=== PATIENT | female | born 1980 | race Caucasian/White ===

== ENCOUNTER 2019-10-03 19:07 | Emergency (ER) | payer BC ==
[2019-10-03] MEDS ORDERED: Take Home: Sulfamethoxazole/Trimethoprim 800-160 MG Tab, 2 Tab Pack PO ONE (19:49)
--- NOTE | 2019-10-03 22:41 | EDM.PDOC ---
ED HPI GENERAL MEDICAL PROBLEM - General Chief Complaint: Genitourinary Problem Stated Complaint: POSSIBLE UTI Time Seen by Provider: 10/03/19 19:25 Source of Information: Reports: Patient History Limitations: Reports: No Limitations - History of Present Illness INITIAL COMMENTS - FREE TEXT/NARRATIVE: Pt. presents to ER with complaints of dysuria, frequency, urgency, and low back pain that started yesterday. Pt. denies any CVA tenderness. No fever or chills. No nausea, vomiting, or diarrhea. Denies any chest pain or shortness of breath. Denies any history of previous frequent UTIs. Denies any abdominal discomfort. No chest pain or shortness of breath. Onset Date: 10/02/19 Quality: Reports: Burning (urination) Severity: Moderate Associated Symptoms: Denies: Confusion, Chest Pain, Cough, cough w sputum, Fever /Chills, Malaise, Nausea/Vomiting, Rash, Shortness of Breath, Syncope Perineal Area Pain Score (Numeric/FACES): 5 - Related Data Allergies Allergy/AdvReac Type Severity Reaction Status Date / Time No Known Allergies Allergy Verified 10/03/19 19:15 Home Meds: Home Meds hydroCHLOROthiazide [Hydrochlorothiazide] 0.5 tab PO DAILY 10/03/19 [History] medroxyPROGESTERone [Depo-Subq Provera 104] 104 mg SQ ASDIRECTED 10/03/19 [ History] Past Medical History - Past Health History Medical/Surgical History: Denies Medical/Surgical History Cardiovascular History: Reports: Hypertension Social & Family History - Tobacco Use Smoking Status *Q: Never Smoker ED ROS GENERAL - Review of Systems Review Of Systems: Comprehensive ROS is negative, except as noted in HPI. ED EXAM, GENERAL - Physical Exam Exam: See Below Exam Limited By: No Limitations General Appearance: Alert, WD/WN, No Apparent Distress Respiratory/Chest: No Respiratory Distress, Lungs Clear, Normal Breath Sounds, No Accessory Muscle Use, Chest Non-Tender Cardiovascular: Normal Peripheral Pulses, Regular Rate, Rhythm, No Edema, No Gallop, No JVD, No Murmur, No Rub GI/Abdominal: Soft, Non-Tender, No Mass (Female) Exam: Deferred Rectal (Female) Exam: Deferred Back Exam: Normal Inspection, Full Range of Motion. No: CVA Tenderness (L), CVA Tenderness (R) Course - Vital Signs Last Recorded V/S: Last Vital Signs Temp 36.9 C 10/03/19 19:16 Pulse 109 H 10/03/19 19:16 Resp 18 10/03/19 19:16 BP 152/95 H 10/03/19 19:16 Pulse Ox 99 10/03/19 19:16 - Orders/Labs/Meds Orders: Active Orders 24 hr Category Date Time Status CULTURE URINE [RM] Stat Lab 10/03/19 19:27 Received Labs: Laboratory Tests 10/03/19 Range/Units 19:27 Urine Color Yellow (YELLOW) Urine Appearance Cloudy H (CLEAR) Urine pH 6.5 (5.0-8.0) Ur Specific [place] >=1.030 Urine Protein >=300 H (NEGATIVE) mg/dL Urine Glucose (UA) Negative (NEGATIVE) mg/dL Urine Ketones Negative (NEGATIVE) mg/dL Urine Occult Blood Moderate H (NEGATIVE) Urine Nitrite Negative (NEGATIVE) Urine Bilirubin Negative (NEGATIVE) Urine Urobilinogen 0.2 (0.2) EU/dL Ur Leukocyte Esterase Small H (NEGATIVE) Urine RBC 5-10 H (NOT SEEN) /HPF Urine WBC 20-30 H (NOT SEEN) /HPF Ur Squamous Epith Cells Rare (NEGATIVE) /HPF Urine Bacteria Few H (NEGATIVE) /HPF Urine Mucus Not seen (NEGATIVE) /LPF Meds: Medications Discontinued Medications Generic Name Dose Route Start Last Admin Trade Name Lionq PRN Reason Stop Dose Admin Trimethoprim/Sulfamethoxazole 1 packet 10/03/19 19:49 10/03/19 19:59 Take Home: Sulfameth/Trimet 800-160mg, 2 Pack PO 10/03/19 19:50 1 packet ONETIME ONE Administration Departure - Departure Time of Disposition: 20:30 Disposition: Home, Self-Care 01 Condition: Good Clinical Impression: UTI, Urinary tract infectious disease - Discharge Information Instructions: Urinary Tract Infection, Adult, Sulfamethoxazole; Trimethoprim, SMX-TMP tablets, Probiotics Referrals: Rayna Lawrence MD [Primary Care Provider] - Forms: ED Department Discharge Additional Instructions: Bactrim DS 1 tab twice daily for 4 days total. Make sure to finish entire course of antibiotics. Drink plenty of fluids. You are quite dehydrated as well. Off work tonight as needed due to illness. Sepsis Event Note (ED) - Evaluation Sepsis Screening Result: No Definite Risk - Focused Exam Vital Signs: Vital Signs Temp Pulse Resp BP Pulse Ox 10/03/19 19:16 36.9 C 109 H 18 152/95 H 99 - Problem List Review Problem List Initiated/Reviewed/Updated: Yes - My Orders Last 24 Hours: My Active Orders 10/03/19 19:27 CULTURE URINE [RM] Stat - Assessment/Plan Last 24 Hours: My Active Orders 10/03/19 19:27 CULTURE URINE [RM] Stat Plan: Bactrim DS 1 tab twice daily for 4 days total. Make sure to finish entire course of antibiotics. Drink plenty of fluids. You are quite dehydrated as well. Off work tonight as needed due to illness.
== END 2019-10-03 20:01 | disposition home or self-care (01) ==
LOC: VM.ED 19:07
DX: N39.0 Urinary tract infection, site not specified (principal); I10 Essential (primary) hypertension; Z79.899 Other long term (current) drug therapy
CPT/HCPCS: 81001; 87086; 99283; A9270-GY

== ENCOUNTER 2023-11-17 15:52 | Emergency (ER) | payer OTHER, BC | END 2023-11-17 17:07 | disposition home or self-care (01) | LOC: VM.ED 15:52 | DX: S80.02XA Contusion of left knee, initial encounter (principal); I10 Essential (primary) hypertension; Z91.048 Other nonmedicinal substance allergy status; Z79.899 Other long term (current) drug therapy; W20.8XXA Other cause of strike by thrown, projected or falling object, initial encounter | CPT/HCPCS: 73562-LT; 99283 ==

== ENCOUNTER 2024-10-21 11:26 | Day surgery (SDC) | payer BC, OTHER ==
[~2024-10-21 11:26] MED LIST: Lactated Ringers 1,000 ML IV SCH; Propofol 200 MG/20 ML SDV ONE; fentaNYL 100 MCG/2 ML SDV ONE
[2024-10-21] MEDS: Lactated Ringers 1,000 ML IV SCH (11:46)
== END 2024-10-21 13:38 | disposition home or self-care (01) ==
LOC: VM.SDS 11:26
PROVIDERS: ATTEND Family Medicine
DX: K29.50 Unspecified chronic gastritis without bleeding (principal); K21.9 Gastro-esophageal reflux disease without esophagitis; K44.9 Diaphragmatic hernia without obstruction or gangrene; I10 Essential (primary) hypertension; E66.9 Obesity, unspecified; R13.10 Dysphagia, unspecified; F10.90 Alcohol use, unspecified, uncomplicated; Z91.09 Other allergy status, other than to drugs and biological substances; Z68.36 Body mass index [BMI] 36.0-36.9, adult; Z79.899 Other long term (current) drug therapy
CPT/HCPCS: 00731; J2704; J3010; J3490; J7120